=== PATIENT | male | born 1965 | race Caucasian/White ===

== ENCOUNTER 2022-03-29 08:54 | Outpatient (CLI) | payer MEDICARE ==
[2022-03-29 15:00] VITALS: BMI 30.6
== END 2022-03-29 08:55 | disposition home or self-care (01) ==
LOC: CSHLAB 08:54
PROVIDERS: ATTEND Specialist
DX: Z20.822 Contact with and (suspected) exposure to COVID-19 (principal)
CPT/HCPCS: U0003; U0005

== ENCOUNTER → 2022-04-02 | Day surgery (SDC) | payer MEDICARE ==
[~2022-04-02] MED LIST: Adenosine 6 MG/2 ML VIAL ONE; Clopidogrel Bisulfate 300 MG TAB ONE; Fentanyl 100 MCG/2 ML VIAL ONE; Heparin 10,000 UNITS/ 10 ML VIAL ONE; Iopamidol 300 61% 100 ML VIAL FS ONE; Lidocaine 1% 20 ML MDV ONE; Midazolam HCl 2 mg/2 ml Vial ONE; Nitroglycerin 50 MG/250 ML BOT 250 ML ONE
[2022-04-02 09:56] VITALS: BMI 31.2
[2022-04-02 10:52] LABS: Anion Gap 13 mmol/L (10-20); BUN (Urea Nitrogen) 19 mg/dL (8.4-25.7); Calc. Creatinine Clearance 157 mL/min (70-130); Calcium 9.1 mg/dL (7.8-10.44); Carbon Dioxide 23 mmol/L (22-29); Chloride 108 mmol/L (98-107); Estimated GFR 102; Glucose 100 mg/dL (70-105); Potassium 4.1 mmol/L (3.5-5.1); Sodium 140 mmol/L (136-145)
[2022-04-02 11:26] LABS: Prothrombin Time 10.8 sec (9.5-12.1)
[2022-04-02 11:39] LABS: #Eosinphils 0.2 10x3/uL (0.0-0.5); #Monocytes 0.4 10x3/uL (0.0-1.1); #Neutrophils 3.4 10x3/uL (1.5-8.4); %Basophils 0.6 % (0.0-2.0); %Eosinophils 2.6 % (0.0-6.0); %Lymphocytes 42.7 % (18.0-47.0); %Monocytes 6.1 % (0.0-10.0); %Neutrophils 47.9 % (40.0-75.0); Hemoglobin 16.5 g/dL (13.5-17.5); Mean Corpuscular HGB CONC 33.7 g/dL (32.0-36.0); Mean Corpuscular Hemoglobin 28.2 pg (27.0-33.0); Mean Corpuscular Volume 83.6 fl (81.2-95.1); Mean Platelet Volume 8.8 fl (7.4-10.4); Platelet Count 207 10x3/uL (150-450); Red Blood Cell (RBC) Count 5.85 10x6/uL (4.32-5.72); White Blood Cell (WBC) Count 7.2 10x3/uL (3.5-10.5)
== END | disposition home or self-care (01) ==
LOC: CSHCCL 08:55
PROVIDERS: ATTEND Specialist
PROC: 027034Z Dilation of Coronary Artery, One Artery with Drug-eluting Intraluminal Device, Percutaneous Approach (ICD-10-PCS; principal; 2022-04-02)
PROC: 4A023N7 Measurement of Cardiac Sampling and Pressure, Left Heart, Percutaneous Approach (ICD-10-PCS; 2022-04-02)
PROC: B2111ZZ Fluoroscopy of Multiple Coronary Arteries using Low Osmolar Contrast (ICD-10-PCS; 2022-04-02)
PROC: B2181ZZ Fluoroscopy of Left Internal Mammary Bypass Graft using Low Osmolar Contrast (ICD-10-PCS; 2022-04-02)
PROC: B2121ZZ Fluoroscopy of Single Coronary Artery Bypass Graft using Low Osmolar Contrast (ICD-10-PCS; 2022-04-02)
DX: I25.118 Atherosclerotic heart disease of native coronary artery with other forms of angina pectoris (principal); I11.0 Hypertensive heart disease with heart failure; I50.42 Chronic combined systolic (congestive) and diastolic (congestive) heart failure; E78.2 Mixed hyperlipidemia; F17.210 Nicotine dependence, cigarettes, uncomplicated; I44.0 Atrioventricular block, first degree; Z86.16 Personal history of COVID-19; Z79.82 Long term (current) use of aspirin; Z79.899 Other long term (current) drug therapy; Z88.8 Allergy status to other drugs, medicaments and biological substances; Z95.1 Presence of aortocoronary bypass graft
CPT/HCPCS: 80048; 85025; 85610; 92928; 92978; 92979; 93005; 93010; 93459; 99152; 99153; C1725; C1726; C1753; C1760; C1769; C1874; C1887; C9600; J0153; J1644; J2250; J3010; Q9967

== ENCOUNTER 2024-02-12 13:45 | Outpatient (CLI) | payer MEDICARE | END 2024-02-12 13:46 | disposition home or self-care (01) | LOC: CSHLAB 13:45 | PROVIDERS: ATTEND Specialist | DX: Z01.818 Encounter for other preprocedural examination (principal) | CPT/HCPCS: 80048; 85027; 85610; 93005; 93010 ==

== ENCOUNTER 2024-02-13 09:09 | Day surgery (SDC) | payer MEDICARE ==
[2024-02-13] MEDS ORDERED: Aspirin 325 MG TAB ONE (09:28)
[2024-02-13] MEDS ORDERED: Ascorbic Acid 500 mg Chewable Tablet ONE (09:28)
[2024-02-13 09:40] VITALS: BP 128/85; TEMP 97.6
[2024-02-13] MEDS ORDERED: Iopamidol 300 61% 100 ML VIAL FS ONE (10:48)
[2024-02-13] MEDS ORDERED: Midazolam HCl 2 mg/2 ml Vial ONE (12:36)
[2024-02-13] MEDS ORDERED: Lidocaine 1% (PF) 30 ML VIAL ONE (12:36)
[2024-02-13] MEDS ORDERED: fentaNYL 50 mcg/mL 1 mL Vial ONE (12:36)
[2024-02-13] MEDS ORDERED: Heparin 10,000 UNITS/ 10 ML VIAL ONE (12:36)
[2024-02-13] MEDS ORDERED: Nitroglycerin 50 MG/250 ML BOT 0 ML ONE (12:37)
[2024-02-13] MEDS ORDERED: Adenosine 6 mg (2 mL) VIAL ONE (12:37)
[2024-02-13] MEDS ORDERED: Atropine Sulfate 1 mg/1 ml Vial ONE (12:37)
[2024-02-13] MEDS ORDERED: Clopidogrel Bisulfate 300 MG TAB ONE (13:06)
[2024-02-13] MEDS ORDERED: HYDROcodone/Acetaminophen 7.5/325 mg Tablet PO SCH (14:33)
== END 2024-02-13 16:55 | disposition home or self-care (01) ==
LOC: CSHSDC 09:09
PROVIDERS: ATTEND Specialist
PROC: 4A023N7 Measurement of Cardiac Sampling and Pressure, Left Heart, Percutaneous Approach (ICD-10-PCS; principal; 2024-02-13)
PROC: B205YZZ Plain Radiography of Left Heart using Other Contrast (ICD-10-PCS; 2024-02-13)
PROC: B208YZZ Plain Radiography of Left Internal Mammary Bypass Graft using Other Contrast (ICD-10-PCS; 2024-02-13)
PROC: B202YZZ Plain Radiography of Single Coronary Artery Bypass Graft using Other Contrast (ICD-10-PCS; 2024-02-13)
DX: I25.10 Atherosclerotic heart disease of native coronary artery without angina pectoris (principal); I11.0 Hypertensive heart disease with heart failure; I50.42 Chronic combined systolic (congestive) and diastolic (congestive) heart failure; R94.39 Abnormal result of other cardiovascular function study; E11.9 Type 2 diabetes mellitus without complications; E78.2 Mixed hyperlipidemia; G47.30 Sleep apnea, unspecified; Z90.49 Acquired absence of other specified parts of digestive tract; Z98.890 Other specified postprocedural states; F17.210 Nicotine dependence, cigarettes, uncomplicated; Z88.8 Allergy status to other drugs, medicaments and biological substances; Z95.1 Presence of aortocoronary bypass graft; Z79.82 Long term (current) use of aspirin; Z79.899 Other long term (current) drug therapy
CPT/HCPCS: 93459; C1760 ×2; C1769; J3010; 99152; 99153; J0153; J0461; J1644; J2001; J2250; Q9967